=== PATIENT | female | born 1980 | race Two or more races ===

== ENCOUNTER 2025-07-27 17:14 | Inpatient (IN) | payer OTHER ==
[~2025-07-27] VITALS: Ht 167.6 cm; Wt 100.7 kg
[2025-07-27] MEDS ORDERED: TRAMADOL HCL 50 MG TABLET PO STA (20:56)
[2025-07-27] MEDS ORDERED: KETOROLAC TROMETHAMINE 15 MG VIAL IV STA (20:56)
[2025-07-27] MEDS ORDERED: CEFTRIAXONE SODIUM 2,000 MG VIAL IV STA (20:57)
[2025-07-27] MEDS ORDERED: KETOROLAC TROMETHAMINE 30 MG VIAL ONE (22:08)
[2025-07-27] MEDS ORDERED: CEFTRIAXONE SODIUM 2,000 MG VIAL ONE (22:08)
--- NOTE | 2025-07-27 22:50 | NUR ---
PTE EVALUADA POR EL DR. BRIAN. SE OIRENTA SOBRE TARTAMIENTO, VERBALIZA ENTENDER. SE CANALIZA, COLECTA MUESTRAS DE LAB Y SE ADMINISTRA MEDICAMENTO LEANDER ORDEN MEDICA BAJO MEDIDAS ASEPTICAS.
[2025-07-27 23:21] LABS: BASO % 0.2 % (0.1-1.2); EOS # 0.06 (0.04-0.54); EOS % 0.3 % (0.7-7.0); LYMPH # 1.42 (1.18-3.74); LYMPH % 8.0 % (19.3-53.1); MEAN PLATELET VOLUME 11.70 fl (9.4-12.4); MONO # 1.05 (0.24-0.82); MONO % 5.9 % (4.7-12.5); NEUT # 15.17 (1.56-6.13); NEUT % 84.9 % (34.0-71.1); RED CELL DISTRIBUTION WIDTH 12.2 % (11.6-14.4)
[2025-07-27 23:38] LABS: INR 1.04
[2025-07-27 23:44] LABS: ALT/SGPT 25.0 U/L (12-78); AST/SGOT 14.0 U/L (15-37); BILIRUBIN TOTAL 0.79 mg/dL (0.3-1.2); BUN CREA RATIO 19.0 (7.0-25.0); CREATININE SERUM 0.69 mg/dL (0.55-1.02); GFR 92.0; GLOBULINA 4.5 G/DL (2.4-3.5); GLUCOSE FASTING 103.0 mg/dL (65-100); OSMOLALITY SERUM 282.0 MOSM/KG (275-295)
--- NOTE | 2025-07-28 07:31 | NUR ---
FEMINA ALERTA Y ORIENTADA X3 EN SHANELLE POSICION MAS BAJA Y BARANDAS ELEVADAS POR SEGURIDAD. CANALIZADA EN MANO DERECHA ANGIO #22 EN H/L. PACIENTE CONSULTADA CON DR YANELIS [facility].
[2025-07-28 08:34] LABS: URINE APPEARANCE Cloudy; URINE BILIRRUBIN Negative (NEGATIVE); URINE BLOOD Negative; URINE COLOR Dark Yellow; URINE GLUCOSE Negative (NEGATIVE); URINE KETONE Trace (NEGATIVE); URINE LEUKOCYTE Negative; URINE NITRATE Negative; URINE PROTEIN 30 (NEGATIVE); URINE UROBILINOGEN 0.2 E.U./dl
[2025-07-28 08:42] LABS: URINE BACTERIA 1267.1 uL (0.0-1933); URINE EPITHELIAL CELLS 37.0 uL (0.0-38.8); URINE RBC 13.6 uL (0.0-20.8); URINE WBC 16.9 uL (0.0-23.2)
[2025-07-28 09:04] LABS: TYPE CELLS RENAL TUBULAR; URINE CAST 1.02 uL (0.0-1.40); URINE MUCUS HEAVY
[2025-07-28] MEDS ORDERED: KETOROLAC TROMETHAMINE 15 MG VIAL IV ONE (14:30)
[2025-07-28] MEDS ORDERED: KETOROLAC TROMETHAMINE 30 MG VIAL ONE (14:41)
[2025-07-28] MEDS ORDERED: ACETAMINOPHEN 325 MG TABLET PO PRN (17:30)
[2025-07-28] MEDS ORDERED: 0.9 % SODIUM CHLORIDE 1,000 ML IV SCH (17:30)
[2025-07-28] MEDS ORDERED: KETOROLAC TROMETHAMINE 30 MG VIAL IU PRN (17:30)
[2025-07-28] MEDS ORDERED: PIPERACILLIN/TAZOBACTAM SODIUM 3.375 GM in 0.9 % SODIUM CHLORIDE 100 ML IV SCH (18:00)
[2025-07-28] MEDS ORDERED: LINEZOLID IN DEXTROSE 5% 300 ML IV SCH (21:00)
[2025-07-28 21:01] VITALS: BP 107/60; O2SAT 99
[2025-07-29 04:13] VITALS: BP 98/56; O2SAT 99
[2025-07-29 08:12] LABS: BASO % 0.2 % (0.1-1.2); EOS # 0.14 (0.04-0.54); EOS % 1.6 % (0.7-7.0); LYMPH # 1.50 (1.18-3.74); LYMPH % 17.1 % (19.3-53.1); MEAN PLATELET VOLUME 11.60 fl (9.4-12.4); MONO # 0.65 (0.24-0.82); MONO % 7.4 % (4.7-12.5); NEUT # 6.42 (1.56-6.13); NEUT % 73.4 % (34.0-71.1); RED CELL DISTRIBUTION WIDTH 11.9 % (11.6-14.4)
[2025-07-29 08:50] LABS: BUN CREA RATIO 27.0 (7.0-25.0); CREATININE SERUM 0.6 mg/dL (0.55-1.02); GFR 108.11; GLUCOSE FASTING 85.0 mg/dL (65-100); OSMOLALITY SERUM 287.0 MOSM/KG (275-295)
[2025-07-29 08:57] LABS: ERYTHROCYTE SEDIMENTATION RATE 95 mm/hr (0-20)
[2025-07-29] MEDS ORDERED: LACTOBACILLUS ACIDOPHILUS 1 CAP CAP PO SCH (09:00)
[2025-07-29] MEDS ORDERED: ACETAMINOPHEN 500 MG GEL..CAP PO PRN (10:00)
[2025-07-29 10:23] VITALS: BP 109/74; O2SAT 96
[2025-07-29] MEDS ORDERED: FAMOTIDINE/PF 20 MG/2 ML VIAL IV SCH ×2 (12:00→17:00)
[2025-07-29] MEDS ORDERED: PIPERACILLIN/TAZOBACTAM SODIUM 3.375 GM VIAL IV ONE (15:40)
[2025-07-29 19:21] VITALS: BP 117/80; O2SAT 99
[2025-07-30 02:41] VITALS: BP 99/66; O2SAT 97
[2025-07-30 09:19] VITALS: BP 103/69; O2SAT 99
[2025-07-30 21:52] VITALS: BP 110/78; O2SAT 97
[2025-07-31 03:47] VITALS: BP 109/72; O2SAT 99
[2025-07-31 10:07] VITALS: BP 116/57; O2SAT 100
[2025-07-31 19:07] VITALS: BP 103/73
[2025-07-31] MEDS ORDERED: LINEZOLID 600 MG TABLET PO SCH ×2 (21:00)
[2025-08-01 03:17] VITALS: BP 106/70; O2SAT 99
[2025-08-01 06:21] LABS: BASO % 0.2 % (0.1-1.2); EOS # 0.19 (0.04-0.54); EOS % 4.6 % (0.7-7.0); LYMPH # 1.32 (1.18-3.74); LYMPH % 32.3 % (19.3-53.1); MEAN PLATELET VOLUME 10.70 fl (9.4-12.4); MONO # 0.45 (0.24-0.82); MONO % 11.0 % (4.7-12.5); NEUT # 2.08 (1.56-6.13); NEUT % 50.9 % (34.0-71.1); RED CELL DISTRIBUTION WIDTH 11.7 % (11.6-14.4)
[2025-08-01 06:46] LABS: BUN CREA RATIO 13.0 (7.0-25.0); CREATININE SERUM 0.61 mg/dL (0.55-1.02); GFR 106.06; GLUCOSE FASTING 87.0 mg/dL (65-100); OSMOLALITY SERUM 286.0 MOSM/KG (275-295)
[2025-08-01 09:11] VITALS: BP 100/67; O2SAT 97
[2025-08-01 19:37] VITALS: BP 101/70; O2SAT 98
[2025-08-02 01:32] VITALS: BP 111/69; O2SAT 97
[2025-08-02 09:31] VITALS: BP 122/76; O2SAT 99
[2025-08-02] MEDS ORDERED: BENZOCAINE/MENTHOL 90 ML BOTTLE TOP STA (10:59)
[2025-08-02 17:08] VITALS: BP 117/70; O2SAT 97
[2025-08-02] MEDS ORDERED: BENZOCAINE/MENTHOL 90 ML BOTTLE TOP SCH (18:00)
[2025-08-03 02:52] VITALS: BP 109/72; O2SAT 97
[2025-08-03 09:15] VITALS: BP 155/87; O2SAT 99
[2025-08-03 20:02] VITALS: BP 125/84; O2SAT 100
[2025-08-04 03:21] VITALS: BP 121/80; O2SAT 97
[2025-08-04 08:40] VITALS: BP 117/73; O2SAT 95
[2025-08-04 19:34] VITALS: BP 111/76
== END 2025-08-04 16:00 | disposition home or self-care (01) | DRG 601 ==
LOC: ER 17:14 → MEDI 07-28 17:26
PROVIDERS: General Practice; ADMIT Student in an Organized Health Care Education/Training Program; ATTEND Student in an Organized Health Care Education/Training Program
PROC: BH41ZZZ Ultrasonography of Left Breast (ICD-10-PCS; principal; 2025-07-29)
PROC: BW24ZZZ Computerized Tomography (CT Scan) of Chest and Abdomen (ICD-10-PCS; 2025-07-29)
DX: N61.0 Mastitis without abscess (principal); N60.02 Solitary cyst of left breast